=== PATIENT | female | born 2000 | race African-American/Black ===

== ENCOUNTER 2021-01-24 17:52 | Observation (INO) ==
[2021-01-24] MEDS ORDERED: SODIUM CHLORIDE 0.9% 1000ML 2,000 ML IV ONE (18:15)
--- NOTE | 2021-01-24 18:20 | Emergency Department Note ---
Impression & Plan Acute appendicitis, Abdominal pain ED Provider Note NAME: IRMA RANGEL AGE: 20 SEX: F : 2000 ARRIVES VIA: Ambulance INFORMANT: Patient ED PROVIDER(S): Mich Saini DO CHIEF COMPLAINT: abdominal pain HPI: Patient is a 20-year-old female who presents ER for right lower quadrant abdominal pain which has been present since this past Thursday. Last menstrual period was about 2 weeks ago. Pain is worse with movement, twisting, turning, and bending. She describes as a crampy pain which occurred while she was driving to work. She denies any diarrhea. Normal bowel movement was yesterday. She denies any vaginal bleeding and vaginal discharge. She has not been sexually active for the past 3 months. No previous STDs. Denies any upper respiratory symptoms. No other exacerbating or remitting factors. She had a CT with just IV contrast performed in outside hospital and an ultrasound which they were uncertain whether this was of appendicitis, hydrosalpinx, tubo-ovarian abscess, ovarian cyst or ovarian torsion. ROS: See above HPI for pertinent positives & negatives. A total of 10 systems reviewed and were otherwise negative. PAST MEDICAL HISTORY:See Below PAST SURGICAL HISTORY:See Below FAMILY HISTORY:See Below SOCIAL HISTORY:See Below HOME MEDICATIONS:See Below ALLERGIES:See Below VITALS:See Below PHYSICAL EXAMINATION: GENERAL: Sitting up in bed, alert, well appearing, well nourished, no distress, non-toxic EYE EXAM: normal conjunctiva. PERRL and EOM's grossly intact. OROPHARYNX: no exudate, no erythema, lips, buccal mucosa, and tongue normal and mucous membranes are moist NECK: supple, no nuchal rigidity, no adenopathy, non-tender LUNGS: Clear to auscultation. Normal chest wall mechanics HEART: no murmurs, S1 normal and S2 normal ABDOMEN: abdomen soft, TTP in RLQ, normo-active bowel sounds, no masses, no rebound or guarding. UPPER EXTREMITIES: upper extremities are grossly normal. LOWER EXTREMITIES: No pitting edema. NEURO EXAM: Normal sensorium, cranial nerves II-XII grossly intact, normal speech, no gross weakness of arms, no gross weakness of legs. MEDICAL DECISION MAKING: Patient is a 20-year-old female who presents ER referred in for another hospital as they performed a CT and ultrasound and when unable to obtain good images. They did not give her oral contrast and she is only 44 kg which made it nearly impossible to evaluate. IV was established blood was obtained. Labs show leukocytosis of 20,000. Mild anemia at 11. BMP with LFTs bilirubin and lipase was unremarkable. UA was clean. She had a test done at the outside facility which was negative. Covid was negative. She declined performing transvaginal exam. She had to be encouraged on multiple occasions to continue to drink and she eventually did. CT shows appendicitis. She was given IV fluids Zofran morphine and Zosyn. She was updated and discussed with general surgery and taken to the OR. Observation Status: Indication: Abdominal pain Patient with no pertinent family history, was seen first at 1820 hrs and was necessary in order to determine medical stabilityand avoid unnecessary admission. Upon reevaluation, 6 hours of observation revealed that the patient should be taken to the OR for acute appendicitis. Disposition date and time 0011 on 01/25/2021 Triage Nursing notes reviewed. Limited review of prior medical records performed Vital Signs: reviewed and remarkable for tachy Differential diagnosis: Differential diagnoses includes but is not limited to gastritis, peptic ulcer disease, GERD, gallbladder disease, pancreatitis, small bowel obstruction, acute coronary syndrome, pericarditis, ischemic bowel, irritable bowel disease, irritable bowel syndrome, appendicitis, diverticulitis, malignancy, hernia, urinary tract infection, torsion, [/ectopic (if female)], perforation, trauma, infectious. ER treatment provided: See below Diagnostics interpreted by me: Cardiac Monitoring: An order was placed for continuous cardiac monitoring. The monitor shows a rate of 95 with sinus rhythm. Laboratory studies: As stated above and show below. Imaging studies: CT abdomen pelvis shows appendicitis Ultrasound pelvis was then unable to determine fluid-filled contents in the lower pelvis Consultation(s): Discussed with Dr. Delgadillo and patient was taken to the OR Procedures: none Critical Care: None Past Med/Surg History Social History Smoking Status: Never smoker Feels Safe at Home: Yes Allergies Allergies Allergy/AdvReac Type Severity Reaction Status Date / Time No Known Allergies Allergy Unverified 01/24/21 18:37 Home Meds Home Medications Medication Instructions Recorded Confirmed acetaminophen 500 mg tablet 1,000 mg PO QID PRN 01/20/21 01/24/21 valacyclovir 500 mg tablet 500 mg PO DAILY PRN 01/20/21 01/24/21 norethindrone 1 mg-ethinyl 1 tab PO DAILY 01/24/21 01/24/21 estradiol 20 mcg (21)-iron 75 mg (7) tablet (Aurovela Fe 1-20 (28)) Results & Data (ED) Vital Signs Vital Signs - 24 hr 01/24/21 17:59 01/24/21 18:06 01/24/21 18:15 Temperature 37.0 C Temperature Source Oral Pulse Rate Pulse Rate [Left] 100 H Pulse Rhythm [Left] Regular Pulse Strength [Left] Normal Respiratory Rate 18 Respiratory Effort / Characteristics Non-Labored Respiratory Depth Normal Respiratory Pattern Regular Blood Pressure Blood Pressure [Left Arm] 112/61 Blood Pressure Mean Blood Pressure Mean [Left Arm] 78 Blood Pressure Position [Left Arm] Lying Pulse Oximetry 99 99 Oxygen Delivery Method Room Air Room Air Sepsis Recent Fever Within 48 Hours No Sepsis New/Unexplained Change in Mental Status N/A Sepsis Action Taken by Nursing No Action Required 01/24/21 20:21 01/24/21 20:31 01/24/21 20:45 Temperature Temperature Source Pulse Rate 114 H 97 H Pulse Rate [Left] 99 H Pulse Rhythm [Left] Regular Pulse Strength [Left] Normal Respiratory Rate 20 24 20 Respiratory Effort / Characteristics Non-Labored Respiratory Depth Normal Respiratory Pattern Regular Blood Pressure 111/72 Blood Pressure [Left Arm] 105/66 Blood Pressure Mean 85 Blood Pressure Mean [Left Arm] 79 Blood Pressure Position [Left Arm] Sitting Pulse Oximetry 100 99 99 Oxygen Delivery Method Room Air Room Air Room Air Sepsis Recent Fever Within 48 Hours Sepsis New/Unexplained Change in Mental Status Sepsis Action Taken by Nursing 01/24/21 21:00 01/24/21 21:15 01/24/21 21:30 Temperature Temperature Source Pulse Rate 107 H 103 H 106 H Pulse Rate [Left] Pulse Rhythm [Left] Pulse Strength [Left] Respiratory Rate 22 22 25 H Respiratory Effort / Characteristics Respiratory Depth Respiratory Pattern Blood Pressure 118/89 Blood Pressure [Left Arm] Blood Pressure Mean 98 Blood Pressure Mean [Left Arm] Blood Pressure Position [Left Arm] Pulse Oximetry 99 99 99 Oxygen Delivery Method Room Air Room Air Room Air Sepsis Recent Fever Within 48 Hours Sepsis New/Unexplained Change in Mental Status Sepsis Action Taken by Nursing 01/24/21 21:45 01/24/21 22:00 01/24/21 23:16 Temperature 36.8 C Temperature Source Oral Pulse Rate 98 H 99 H Pulse Rate [Left] 110 H Pulse Rhythm [Left] Pulse Strength [Left] Respiratory Rate 22 24 20 Respiratory Effort / Characteristics Respiratory Depth Respiratory Pattern Blood Pressure 109/62 Blood Pressure [Left Arm] 107/56 L Blood Pressure Mean 77 Blood Pressure Mean [Left Arm] 73 Blood Pressure Position [Left Arm] Pulse Oximetry 99 99 100 Oxygen Delivery Method Room Air Room Air Room Air Sepsis Recent Fever Within 48 Hours Sepsis New/Unexplained Change in Mental Status Sepsis Action Taken by Nursing 01/24/21 23:51 Temperature Temperature Source Pulse Rate Pulse Rate [Left] 96 H Pulse Rhythm [Left] Pulse Strength [Left] Respiratory Rate 20 Respiratory Effort / Characteristics Respiratory Depth Respiratory Pattern Blood Pressure Blood Pressure [Left Arm] 102/59 L Blood Pressure Mean Blood Pressure Mean [Left Arm] 73 Blood Pressure Position [Left Arm] Pulse Oximetry 97 Oxygen Delivery Method Room Air Sepsis Recent Fever Within 48 Hours Sepsis New/Unexplained Change in Mental Status Sepsis Action Taken by Nursing Laboratory Data Result diagrams: 01/24/21 19:19 01/24/21 19:18 Lab Results 01/24/21 01/24/21 01/24/21 Range/Units 19:18 19:19 22:17 WBC 20.33 H (4.8-10.8) K/uL RBC 3.66 L (4.2-5.4) M/uL Hgb 11.7 L (12.0-16.0) g/dL Hct 35.2 L (37-47) % MCV 96.2 (80-100) fL MCH 32.0 (25-34) pg MCHC 33.2 (32-36) g/dL RDW Std Deviation 45.8 (36.4-46.3) fL RDW Coeff of Demarcus 12.9 (11.5-14.5) % Plt Count 234 (130-400) K/uL MPV 13.0 H (7.4-10.4) fL Immature Gran % (Auto) 0.4 % Neut % (Auto) 92.4 % Lymph % (Auto) 4.1 % [place] % (Auto) 3.0 % Eos % (Auto) 0.0 % Baso % (Auto) 0.1 % Neut # (Auto) 18.77 H (1.4-6.5) K/uL Lymph # (Auto) 0.84 L (1.2-3.4) K/uL [place] # (Auto) 0.62 H (0.11-0.59) K/uL Eos # (Auto) 0.00 (0-0.5) K/uL Baso # (Auto) 0.02 (0-0.2) K/uL Immature Gran # (Auto) 0.08 H (0.00-0.02) K/uL Sodium 139 (136-145) mmol/L Potassium 3.6 (3.5-5.1) mmol/L Chloride 107 (98-107) mmol/L Carbon Dioxide 23 (21-32) mmol/L Anion Gap 9.0 (3-11) BUN 7 (7-18) mg/dl Creatinine 0.81 (0.6-1.2) mg/dl Est Cr Clr Drug Dosing 77.7 ml/min Est GFR ( Amer) 120.3 ml/min Est GFR (Non-Af Amer) 103.8 ml/min BUN/Creatinine Ratio 8.0 L (10-20) Glucose 96 (70-99) mg/dl Calcium 9.1 (8.5-10.1) mg/dl Total Bilirubin 0.5 (0.2-1) mg/dl AST 6 L (15-37) U/L ALT 12 (12-78) U/L Alkaline Phosphatase 44 L (45-117) U/L Total Protein 6.9 (6.4-8.2) gm/dl Albumin 3.0 L (3.4-5.0) gm/dl Globulin 3.9 (2.5-4.0) gm/dl Albumin/Globulin Ratio 0.8 L (0.9-2) Lipase 159 (73-393) U/L Urine Color Urine Appearance (Clear) Urine pH (4.5-7.5) Ur Specific [place] (1.000-1.030) Urine Protein (Negative) Urine Glucose (UA) (Negative) Urine Ketones (Negative) Urine Blood (Negative) Urine Nitrite (Negative) Urine Bilirubin (Negative) Urine Urobilinogen (Negative) Ur Leukocyte Esterase (Negative) COVID-19 Eval Order Cov[facility] at [facility] SARS-CoV-2 (PCR) (Negative) 01/24/21 01/24/21 Range/Units 22:17 22:41 WBC (4.8-10.8) K/uL RBC (4.2-5.4) M/uL Hgb (12.0-16.0) g/dL Hct (37-47) % MCV (80-100) fL MCH (25-34) pg MCHC (32-36) g/dL RDW Std Deviation (36.4-46.3) fL RDW Coeff of Demarcus (11.5-14.5) % Plt Count (130-400) K/uL MPV (7.4-10.4) fL Immature Gran % (Auto) % Neut % (Auto) % Lymph % (Auto) % [place] % (Auto) % Eos % (Auto) % Baso % (Auto) % Neut # (Auto) (1.4-6.5) K/uL Lymph # (Auto) (1.2-3.4) K/uL [place] # (Auto) (0.11-0.59) K/uL Eos # (Auto) (0-0.5) K/uL Baso # (Auto) (0-0.2) K/uL Immature Gran # (Auto) (0.00-0.02) K/uL Sodium (136-145) mmol/L Potassium (3.5-5.1) mmol/L Chloride (98-107) mmol/L Carbon Dioxide (21-32) mmol/L Anion Gap (3-11) BUN (7-18) mg/dl Creatinine (0.6-1.2) mg/dl Est Cr Clr Drug Dosing ml/min Est GFR ( Amer) ml/min Est GFR (Non-Af Amer) ml/min BUN/Creatinine Ratio (10-20) Glucose (70-99) mg/dl Calcium (8.5-10.1) mg/dl Total Bilirubin (0.2-1) mg/dl AST (15-37) U/L ALT (12-78) U/L Alkaline Phosphatase (45-117) U/L Total Protein (6.4-8.2) gm/dl Albumin (3.4-5.0) gm/dl Globulin (2.5-4.0) gm/dl Albumin/Globulin Ratio (0.9-2) Lipase (73-393) U/L Urine Color Yellow Urine Appearance Clear (Clear) Urine pH 6.5 (4.5-7.5) Ur Specific [place] 1.005 (1.000-1.030) Urine Protein Negative (Negative) Urine Glucose (UA) Negative (Negative) Urine Ketones Negative (Negative) Urine Blood Negative (Negative) Urine Nitrite Negative (Negative) Urine Bilirubin Negative (Negative) Urine Urobilinogen Negative (Negative) Ur Leukocyte Esterase Negative (Negative) COVID-19 Eval Order SARS-CoV-2 (PCR) NEGATIVE (Negative) Administered Medications Discontinued Medications Sodium Chloride (Nss 1000ml) 2,000 mls @ 999 mls/hr IV .Q2H1M ONE Stop: 01/24/21 20:15 Last Infusion: 01/24/21 21:55 Dose: 0 mls/hr Documented by: [id number] Admin: 01/24/21 18:33 Dose: 999 mls/hr Documented by: [id number] Piperacillin Sod/Tazobactam Sod (Zosyn) 4.5 gm in 120 mls @ 240 mls/hr IV NOW ONE Stop: 01/24/21 21:31 Last Infusion: 01/24/21 22:22 Dose: 0 mls/hr Documented by: [id number] Admin: 01/24/21 21:35 Dose: 240 mls/hr Documented by: [id number] Ioversol (Optiray 320 100ml) 84 ml IV ONCE ONE Stop: 01/24/21 22:40 Last Admin: 01/24/21 22:39 Dose: 84 ml Documented by: [id number] Morphine Sulfate (Morphine Sulfate 2 Mg/Ml Carp) 2 mg IV NOW STA Stop: 01/24/21 21:03 Last Admin: 01/24/21 21:35 Dose: 2 mg Documented by: [id number] Ondansetron HCl (Ondansetron Inj 2 Mg/Ml 2 Ml Vial) 4 mg IV NOW STA Stop: 01/24/21 21:03 Last Admin: 01/24/21 21:35 Dose: 4 mg Documented by: [id number] Imaging Data Radiologist's Impression: Pelvis Ultrasound 01/24/21 18:15 US pelvic complete HISTORY: 20 years-old Female rlq abd pain Acute right lower quadrant abdominal pain COMPARISON: None TECHNIQUE: Multiple real-time sonographic images of the deep pelvic structures were obtained transabdominally assessing grayscale appearance, color and spectral flow. The patient declined the transvaginal component of the study. FINDINGS: Anteflexed uterus measures 6.8 x 3.5 x 5.2 cm. Endometrium measures 9 mm in thickness. The left ovary is obscured by bowel gas. Mildly complex free pelvic fluid is noted within the abdominal left lower quadrant. The right ovary is not definitively seen. Collections of complex debris/fluid are noted within the right adnexa, largest of which measures 5.4 x 4.9 x 4.8 cm. Indeterminate linear structure in the right adnexum measures 5.6 cm with with echogenic wall thickening. IMPRESSION: 1. Limited study secondary to patient refusing the transvaginal component of the exam. 2. Nonvisualization of the ovaries. 3. Mildly complex free pelvic fluid is noted with complex cystic lesions versus collections of the right adnexum measuring up to 5.4 cm. Additionally, there is an indeterminate tubular structure of the right adnexum which demonstrates wall thickening. Differential considerations would include an inflamed fallopian tube, bowel loop or appendix with possible pelvic abscesses. Correlation with the already ordered CT abdomen and pelvis study recommended. ACT 112: Negative or not required by law. The above report was generated using voice recognition software. It may contain grammatical, syntax or spelling errors. Electronically signed by: Louis Butts M.D. 01/24/2021 8:30 PM Discharge Plan Visit Data Chief Complaint: Abdominal Pain Stated Complaint: ABDOMINAL PAIN ED Provider: Mich Saini Discharge Problem: Acute appendicitis, Abdominal pain Forms Stand Alone Forms: [facility] Prescriptions Prescriptions: No Action valacyclovir 500 mg Tablet 500 mg PO DAILY PRN (Reason: Cold Sores) RF: 0 acetaminophen 500 mg Tablet 1,000 mg PO QID PRN (Reason: Pain) RF: 0 norethindrone-e.estradiol-iron [Aurovela Fe 1-20 (28)] 1 mg-20 mcg (21)/75 mg (7) tablet 1 tab PO DAILY RF: 0 Referrals Referrals: PCP,NO [Physician] -
[2021-01-24 20:13] LABS: Basophils # (auto) 0.02 K/uL (0-0.2); Basophils % (auto) 0.1 %; Hematocrit (blood only) 35.2 % (37-47); Hemoglobin 11.7 g/dL (12.0-16.0); Immature Granulocytes # (auto) 0.08 K/uL (0.00-0.02); Immature Granulocytes % (auto) 0.4 %; Lymphocytes # (auto) 0.84 K/uL (1.2-3.4); Lymphocytes % (auto) 4.1 %; Mean Corpuscular Hgb Conc 33.2 g/dL (32-36); Mean Corpuscular Volume 96.2 fL (80-100); Monocytes # (auto) 0.62 K/uL (0.11-0.59); Neutrophils # (auto) 18.77 K/uL (1.4-6.5); Neutrophils % (auto) 92.4 %; Platelet Count 234 K/uL (130-400); RDW Coefficient of Variation 12.9 % (11.5-14.5); RDW Standard Deviation 45.8 fL (36.4-46.3); Red Blood Count 3.66 M/uL (4.2-5.4); White Blood Count 20.33 K/uL (4.8-10.8)
--- NOTE | 2021-01-24 20:32 | Ultrasound Report ---
US pelvic complete HISTORY: 20 years-old Female rlq abd pain Acute right lower quadrant abdominal pain COMPARISON: None TECHNIQUE: Multiple real-time sonographic images of the deep pelvic structures were obtained transabd ominally assessing grayscale appearance, color and spectral flow. The patient declined the transvagin al component of the study. FINDINGS: Anteflexed uterus measures 6.8 x 3.5 x 5.2 cm. Endometrium measures 9 mm in thickness. The left ovary is obscured by bowel gas. Mildly complex free pelvic fluid is noted within the abdominal left lower quadrant. The right ovary is not definitively seen. Collections of complex debris/fluid are noted wit hin the right adnexa, largest of which measures 5.4 x 4.9 x 4.8 cm. Indeterminate linear structure in the right adnexum measures 5.6 cm with with echogenic wall thickening. IMPRESSION: 1. Limited study secondary to patient refusing the transvaginal component of the exam. 2. Nonvisualization of the ovaries. 3. Mildly complex free pelvic fluid is noted with complex cystic lesions versus collections of the ri ght adnexum measuring up to 5.4 cm. Additionally, there is an indeterminate tubular structure of the right adnexum which demonstrates wall thickening. Differential considerations would include an inflam ed fallopian tube, bowel loop or appendix with possible pelvic abscesses. Correlation with the alread y ordered CT abdomen and pelvis study recommended. ACT 112: Negative or not required by law. The above report was generated using voice recognition software. It may contain grammatical, syntax o r spelling errors. Electronically signed by: Louis Butts M.D. 01/24/2021 8:30 PM
[2021-01-24 20:34] LABS: Calcium 9.1 mg/dl (8.5-10.1); Creatinine Clr Calc Pharmacy 77.7 ml/min; Est GFR (African American) 120.3 ml/min; Est GFR (Non-African American) 103.8 ml/min; Potassium 3.6 mmol/L (3.5-5.1)
[2021-01-24 20:37] LABS: Albumin Globulin Ratio 0.8 (0.9-2); Bilirubin,Total 0.5 mg/dl (0.2-1); Globulin 3.9 gm/dl (2.5-4.0); Total Protein 6.9 gm/dl (6.4-8.2)
[2021-01-24] MEDS ORDERED: PIPERACILL/TAZOBAC CONSULT ACTIVE PRN (21:02)
[2021-01-24] MEDS ORDERED: PIPERACILLIN/TAZOBACTAM 4.5 GM/120 ML BAG IV ONE (21:02)
[2021-01-24] MEDS ORDERED: MoRPHine SULFATE 2 MG/ML CARP IV STA (21:02)
[2021-01-24] MEDS ORDERED: ONDANSETRON INJ 2 MG/ML 2 ML VIAL IV STA (21:02)
[2021-01-24] MEDS ORDERED: OPTIRAY 320 100ml IV ONE (22:39)
[2021-01-24 23:13] LABS: Appearance Urine Clear (Clear); Bilirubin Urine Negative (Negative); Blood Urine Negative (Negative); Color Urine Yellow; Glucose Urine UA Negative (Negative); Ketones Urine Negative (Negative); Leukocyte Esterase Urine Negative (Negative); Nitrite Urine Negative (Negative); Protein Urine Negative (Negative); Specific Gravity Urine 1.005 (1.000-1.030); Urobilinogen Urine Negative (Negative); pH Urine 6.5 (4.5-7.5)
--- NOTE | 2021-01-25 00:27 | History & Physical Bridge Note ---
Date of Service January 25, 2021 History & Physical Bridge Note I have examined the patient, reviewed the History & Physical and in the interval since the performance of the History & Physical I have noted the following changes of clinical significance: no changes noted
--- NOTE | 2021-01-25 00:27 | Surgery Consultation ---
Date of Consultation January 25, 2021 Assessment & Plan (1) Acute appendicitis: pt is a 20 year-old female who presents to Er with one day history RLQ pain, CT scan diagnosis- acute appendicitis, IMP: acute appendicitis, plan, I recommend to do laparoscopic appendectomy, possible open, D/W benefits, risks and alternatives of the surgery, the risks- infection, bleeding, abscess, injury other organs, bowel obstruction, incisional hernia, pt understood, she agrees with the surgery, she signed informed consent, I answered all questions, pre-op iv antibiotic, History of Present Illness Reason for Consultation: acute appendicitis Attending Physician: Mich Perales History of Present Illness CHIEF COMPLAINT: abdominal pain HPI: Patient is a 20-year-old female who presents ER for right lower quadrant abdominal pain which has been present since this past Thursday. Last menstrual period was about 2 weeks ago. Pain is worse with movement, twisting, turning, and bending. She describes as a crampy pain which occurred while she was driving to work. She denies any diarrhea. Normal bowel movement was yesterday. She denies any vaginal bleeding and vaginal discharge. She has not been sexually active for the past 3 months. No previous STDs. Denies any upper respiratory symptoms. No other exacerbating or remitting factors. She had a CT with just IV contrast performed in outside hospital and an ultrasound which they were uncertain whether this was of appendicitis, hydrosalpinx, tubo-ovarian abscess, ovarian cyst or ovarian torsion. I ( Blane Delgadillo MD ) got a call for consult appendicitis, I reviewed pt's H/P, labs, CT scan and U/S study with pt, ROS: See above HPI for pertinent positives & negatives. A total of 10 systems reviewed and were otherwise negative. PAST MEDICAL HISTORY:See Below PAST SURGICAL HISTORY:See Below FAMILY HISTORY:See Below SOCIAL HISTORY:See Below HOME MEDICATIONS:See Below ALLERGIES:See Below Indication: Abdominal pain Patient with no pertinent family history, was seen first at 1820 hrs and was necessary in order to determine medical stabilityand avoid unnecessary admission. Upon reevaluation, 6 hours of observation revealed that the patient should be taken to the OR for acute appendicitis. Disposition date and time 0011 on 01/25/2021 Triage Nursing notes reviewed. Limited review of prior medical records performed Vital Signs: reviewed and remarkable for tachy Differential diagnosis: Differential diagnoses includes but is not limited to gastritis, peptic ulcer disease, GERD, gallbladder disease, pancreatitis, small bowel obstruction, acute coronary syndrome, pericarditis, ischemic bowel, irritable bowel disease, irritable bowel syndrome, appendicitis, diverticulitis, malignancy, hernia, urinary tract infection, torsion, [/ectopic (if female)], perforation, trauma, infectious. ER treatment provided: See below Diagnostics interpreted by me: Cardiac Monitoring: An order was placed for continuous cardiac monitoring. The monitor shows a rate of 95 with sinus rhythm. Laboratory studies: As stated above and show below. Imaging studies: CT abdomen pelvis shows appendicitis Ultrasound pelvis was then unable to determine fluid-filled contents in the lower pelvis Consultation(s): Discussed with Dr. Delgadillo and patient was taken to the OR Procedures: none Critical Care: None Past Med/Surg History Social History Smoking Status: Never smoker Feels Safe at Home: Yes Allergies Allergies Allergy/AdvReac Type Severity Reaction Status Date / Time No Known Allergies Allergy Unverified 01/24/21 18:37 Home Meds Home Medications Medication Instructions Recorded Confirmed acetaminophen 500 mg tablet 1,000 mg PO QID PRN 01/20/21 01/24/21 valacyclovir 500 mg tablet 500 mg PO DAILY PRN 01/20/21 01/24/21 norethindrone 1 mg-ethinyl 1 tab PO DAILY 01/24/21 01/24/21 estradiol 20 mcg (21)-iron 75 mg (7) tablet (Aurovela Fe 1-20 (28)) Results & Data (ED) Vital Signs Vital Signs - 24 hr 01/24/21 17:59 01/24/21 18:06 01/24/21 18:15 Temperature 37.0 C Temperature Source Oral Pulse Rate Pulse Rate [Left] 100 H Pulse Rhythm [Left] Regular Pulse Strength [Left] Normal Respiratory Rate 18 Respiratory Effort / Characteristics Non-Labored Respiratory Depth Normal Respiratory Pattern Regular Blood Pressure Blood Pressure [Left Arm] 112/61 Blood Pressure Mean Blood Pressure Mean [Left Arm] 78 Blood Pressure Position [Left Arm] Lying Pulse Oximetry 99 99 Oxygen Delivery Method Room Air Room Air Sepsis Recent Fever Within 48 Hours No Sepsis New/Unexplained Change in Mental Status N/A Sepsis Action Taken by Nursing No Action Required 01/24/21 20:21 01/24/21 20:31 01/24/21 20:45 Temperature Temperature Source Pulse Rate 114 H 97 H Pulse Rate [Left] 99 H Pulse Rhythm [Left] RegularB Pulse Strength [Left] Normal Respiratory Rate 20 24 20 Respiratory Effort / Characteristics Non-Labored Respiratory Depth Normal Respiratory Pattern Regular Blood Pressure 111/72 Blood Pressure [Left Arm] 105/66 Blood Pressure Mean 85 Blood Pressure Mean [Left Arm] 79 Blood Pressure Position [Left Arm] Sitting Pulse Oximetry 100 99 99 Oxygen Delivery Method Room Air Room Air Room Air Sepsis Recent Fever Within 48 Hours Sepsis New/Unexplained Change in Mental Status Sepsis Action Taken by Nursing 01/24/21 21:00 01/24/21 21:15 01/24/21 21:30 Temperature Temperature Source Pulse Rate 107 H 103 H 106 H Pulse Rate [Left] Pulse Rhythm [Left] Pulse Strength [Left] Respiratory Rate 22 22 25 H Respiratory Effort / Characteristics Respiratory Depth Respiratory Pattern Blood Pressure 118/89 Blood Pressure [Left Arm] Blood Pressure Mean 98 Blood Pressure Mean [Left Arm] Blood Pressure Position [Left Arm] Pulse Oximetry 99 99 99 Oxygen Delivery Method Room Air Room Air Room Air Sepsis Recent Fever Within 48 Hours Sepsis New/Unexplained Change in Mental Status Sepsis Action Taken by Nursing 01/24/21 21:45 01/24/21 22:00 01/24/21 23:16 Temperature 36.8 C Temperature Source Oral Pulse Rate 98 H 99 H Pulse Rate [Left] 110 H Pulse Rhythm [Left] Pulse Strength [Left] Respiratory Rate 22 24 20 Respiratory Effort / Characteristics Respiratory Depth Respiratory Pattern Blood Pressure 109/62 Blood Pressure [Left Arm] 107/56 L Blood Pressure Mean 77 Blood Pressure Mean [Left Arm] 73 Blood Pressure Position [Left Arm] Pulse Oximetry 99 99 100 Oxygen Delivery MethodB Room Air Room Air Room Air Sepsis Recent Fever Within 48 Hours Sepsis New/Unexplained Change in Mental Status Sepsis Action Taken by Nursing 01/24/21 23:51 Temperature Temperature Source Pulse Rate Pulse Rate [Left] 96 H Pulse Rhythm [Left] Pulse Strength [Left] Respiratory Rate 20 Respiratory Effort / Characteristics Respiratory Depth Respiratory Pattern Blood Pressure Blood Pressure [Left Arm] 102/59 L Blood Pressure Mean Blood Pressure Mean [Left Arm] 73 Blood Pressure Position [Left Arm] Pulse Oximetry 97 Oxygen Delivery Method Room Air Sepsis Recent Fever Within 48 Hours Sepsis New/Unexplained Change in Mental Status Sepsis Action Taken by Nursing Laboratory Data Result diagrams: 01/24/21 19:19 01/24/21 19:18 Lab Results 01/24/21 01/24/21 01/24/21 Range/Units 19:18 19:19 22:17 WBC 20.33 H (4.8-10.8) K/uL RBC 3.66 L (4.2-5.4) M/uL Hgb 11.7 L (12.0-16.0) g/dL Hct 35.2 L (37-47) % MCV 96.2 (80-100) fL MCH 32.0 (25-34) pg MCHC 33.2 (32-36) g/dL RDW Std Deviation 45.8 (36.4-46.3) fL RDW Coeff of Demarcus 12.9 (11.5-14.5) % Plt Count 234 (130-400) K/uL MPV 13.0 H (7.4-10.4) fL Immature Gran % (Auto) 0.4 % Neut % (Auto) 92.4 % Lymph % (Auto) 4.1 % [place] % (Auto) 3.0 % Eos % (Auto)B 0.0 % Baso % (Auto) 0.1 % Neut # (Auto) 18.77 H (1.4-6.5) K/uL Lymph # (Auto) 0.84 L (1.2-3.4) K/uL [place] # (Auto) 0.62 H (0.11-0.59) K/uL Eos # (Auto) 0.00 (0-0.5) K/uL Baso # (Auto) 0.02 (0-0.2) K/uL Immature Gran # (Auto) 0.08 H (0.00-0.02) K/uL Sodium 139 (136-145) mmol/L Potassium 3.6 (3.5-5.1) mmol/L Chloride 107 (98-107) mmol/L Carbon Dioxide 23 (21-32) mmol/L Anion Gap 9.0 (3-11) BUN 7 (7-18) mg/dl Creatinine 0.81 (0.6-1.2) mg/dl Est Cr Clr Drug Dosing 77.7 ml/min Est GFR ( Amer) 120.3 ml/min Est GFR (Non-Af Amer) 103.8 ml/min BUN/Creatinine Ratio 8.0 L (10-20) Glucose 96B (70-99) mg/dl Calcium 9.1 (8.5-10.1) mg/dl Total Bilirubin 0.5 (0.2-1) mg/dl AST 6 L (15-37) U/L ALT 12 (12-78) U/L Alkaline Phosphatase 44 L (45-117) U/L Total Protein 6.9 (6.4-8.2) gm/dl Albumin 3.0 L (3.4-5.0) gm/dl Globulin 3.9 (2.5-4.0) gm/dl Albumin/Globulin Ratio 0.8 L (0.9-2) Lipase 159 (73-393) U/L Urine Color Urine Appearance (Clear) Urine pH (4.5-7.5) Ur Specific [place] (1.000-1.030) Urine Protein (Negative) Urine Glucose (UA) (Negative) Urine Ketones (Negative) Urine Blood (Negative) Urine Nitrite (Negative) Urine Bilirubin (Negative) Urine Urobilinogen (Negative) Ur Leukocyte Esterase (Negative) COVID-19 Eval Order Covid19 at [facility] SARS-CoV-2 (PCR) (Negative) 01/24/21 01/24/21 Range/Units 22:17 22:41 WBC (4.8-10.8) K/uL RBC (4.2-5.4) M/uL Hgb (12.0-16.0) g/dL Hct (37-47) % MCV (80-100) fL MCH (25-34) pg MCHC (32-36) g/dL RDW Std Deviation (36.4-46.3) fL RDW Coeff of Demarcus (11.5-14.5) % Plt Count (130-400) K/uL MPV (7.4-10.4) fL Immature Gran % (Auto) % Neut % (Auto) % Lymph % (Auto) % [place] % (Auto) % Eos % (Auto) % Baso % (Auto) % Neut # (Auto) (1.4-6.5) K/uL Lymph # (Auto) (1.2-3.4) K/uL [place] # (Auto) (0.11-0.59) K/uL Eos # (Auto) (0-0.5) K/uL Baso # (Auto) (0-0.2) K/uL Immature Gran # (Auto) (0.00-0.02) K/uL Sodium (136-145) mmol/L Potassium (3.5-5.1) mmol/L Chloride (98-107) mmol/L Carbon Dioxide (21-32) mmol/L Anion Gap (3-11) BUN (7-18) mg/dl Creatinine (0.6-1.2) mg/dl Est Cr Clr Drug Dosing ml/min Est GFR ( Amer) ml/min Est GFR (Non-Af Amer) ml/min BUN/Creatinine Ratio (10-20) Glucose (70-99) mg/dl Calcium (8.5-10.1) mg/dl Total Bilirubin (0.2-1) mg/dl AST (15-37) U/L ALT (12-78) U/L Alkaline Phosphatase (45-117) U/L Total Protein (6.4-8.2) gm/dl Albumin (3.4-5.0) gm/dl Globulin (2.5-4.0) gm/dl Albumin/Globulin Ratio (0.9-2) Lipase (73-393) U/L Urine Color Yellow Urine Appearance Clear (Clear) Urine pH 6.5 (4.5-7.5) Ur Specific [place] 1.005 (1.000-1.030) Urine Protein Negative (Negative) Urine Glucose (UA) Negative (Negative) Urine Ketones Negative (Negative) Urine Blood Negative (Negative) Urine Nitrite Negative (Negative) Urine Bilirubin Negative (Negative) Urine Urobilinogen Negative (Negative) Ur Leukocyte Esterase Negative (Negative) COVID-19 Eval Order SARS-CoV-2 (PCR) NEGATIVE (Negative) Administered Medications Discontinued Medications Sodium Chloride (Nss 1000ml) 2,000 mls @ 999 mls/hr IV .Q2H1M ONE Stop: 01/24/21 20:15 Last Infusion: 01/24/21 21:55 Dose: 0 mls/hr Documented by: [id number] Admin: 01/24/21 18:33 Dose: 999 mls/hr Documented by: [id number] Piperacillin Sod/Tazobactam Sod (Zosyn) 4.5 gm in 120 mls @ 240 mls/hr IV NOW ONE Stop: 01/24/21 21:31 Last Infusion: 01/24/21 22:22 Dose: 0 mls/hr Documented by: [id number] Admin: 01/24/21 21:35 Dose: 240 mls/hr Documented by: [id number] Ioversol (Optiray 320 100ml) 84 ml IV ONCE ONE Stop: 01/24/21 22:40 Last Admin: 01/24/21 22:39 Dose: 84 ml Documented by: [id number] Morphine Sulfate (Morphine Sulfate 2 Mg/Ml Carp) 2 mg IV NOW STA Stop: 01/24/21 21:03 Last Admin: 01/24/21 21:35 Dose: 2 mg Documented by: [id number] Ondansetron HCl (Ondansetron Inj 2 Mg/Ml 2 Ml Vial) 4 mg IV NOW STA Stop: 01/24/21 21:03 Last Admin: 01/24/21 21:35 Dose: 4 mg Documented by: [id number] Imaging Data Radiologist's Impression: Pelvis Ultrasound 01/24/21 18:15 US pelvic complete HISTORY: 20 years-old Female rlq abd pain Acute right lower quadrant abdominal pain COMPARISON: None TECHNIQUE: Multiple real-time sonographic images of the deep pelvic structures were obtained transabdominally assessing grayscale appearance, color and spectral flow. The patient declined the transvaginal component of the study. FINDINGS: Anteflexed uterus measures 6.8 x 3.5 x 5.2 cm. Endometrium measures 9 mm in thickness. The left ovary is obscured by bowel gas. Mildly complex free pelvic fluid is noted within the abdominal left lower quadrant. The right ovary is not definitively seen. Collections of complex debris/fluid are noted within the right adnexa, largest of which measures 5.4 x 4.9 x 4.8 cm. Indeterminate linear structure in the right adnexum measures 5.6 cm with with echogenic wall thickening. IMPRESSION: 1. Limited study secondary to patient refusing the transvaginal component of the exam. 2. Nonvisualization of the ovaries. 3. Mildly complex free pelvic fluid is noted with complex cystic lesions versus collections of the right adnexum measuring up to 5.4 cm. Additionally, there is an indeterminate tubular structure of the right adnexum which demonstrates wall thickening. Differential considerations would include an inflamed fallopian tube, bowel loop or appendix with possible pelvic abscesses. Correlation with the already ordered CT abdomen and pelvis study recommended Allergies Allergy/AdvReac Type Severity Reaction Status Date / Time No Known Allergies Allergy Unverified 01/24/21 18:37 Home Medications Medication Instructions Recorded Confirmed Type acetaminophen 500 mg tablet 1,000 mg PO QID PRN 01/20/21 01/24/21 History valacyclovir 500 mg tablet 500 mg PO DAILY PRN 01/20/21 01/24/21 History norethindrone 1 mg-ethinyl 1 tab PO DAILY 01/24/21 01/24/21 History estradiol 20 mcg (21)-iron 75 mg (7) tablet (Aurovela Fe 1-20 (28)) Patient History Social History Smoking Status: Never smoker Feels Safe at Home: Yes Physical Exam Constitutional: WD/WN, vitals as above Eyes: PERRL, conjunctivae normal, anicteric sclerae Neck: trachea midline, no thyromegaly Respiratory: normal respiratory effort, lungs clear to auscultation Cardiovascular: RRR, no murmur, no edema Gastrointestinal (Abdomen): soft, tenderness at RLQ, no rebound pain, no distend, BS + Musculoskeletal: no cyanosis or clubbing, extremities motor strength 5/5 Neurologic: patellar DTR's 2+ bilat, sensation intact Psychiatric: A+Ox3, euthymic affect Results & Data ([facility]) Vital Signs (Past 12 Hours) Vital Signs Temp Pulse Pulse Resp BP BP Pulse Ox 01/24/21 23:51 96 H 20 102/59 L 97 01/24/21 23:16 110 H 20 107/56 L 100 01/24/21 22:00 36.8 C 99 H 24 109/62 99 01/24/21 21:45 98 H 22 99 01/24/21 21:30 106 H 25 H 99 01/24/21 21:15 103 H 22 99 01/24/21 21:00 107 H 22 118/89 99 01/24/21 20:45 97 H 20 99 01/24/21 20:31 114 H 24 111/72 99 01/24/21 20:21 99 H 20 105/66 100 01/24/21 18:15 99 11/04/21 18:06 37.0 C 100 H 18 112/61 99 (1) Acute appendicitis Acute appendicitis type: unspecified acute appendicitis type Qualified Code(s): K35.80 - Unspecified acute appendicitis
[2021-01-25] MEDS ORDERED: fentaNYL citrate 100 MCG/2 ML VIAL ONE (00:42)
[2021-01-25 00:47] LABS: Pregnancy Test, Urine Negative (Negative)
[2021-01-25] MEDS ORDERED: BACITRACIN OINT 15 GM TUBE ONE (00:48)
[2021-01-25] MEDS ORDERED: BUPIVACAINE 0.25% 30 ML VIAL ONE (00:48)
[2021-01-25] MEDS ORDERED: LIDOCAINE 1% LOCAL 20 ML VIAL ONE (00:48)
[2021-01-25] MEDS ORDERED: fentaNYL citrate 100 MCG/2 ML VIAL IV PRN (00:52)
[2021-01-25] MEDS ORDERED: ONDANSETRON INJ 2 MG/ML 2 ML VIAL IV PRN ×2 (00:52→02:38)
[2021-01-25] MEDS ORDERED: ATROPINE SULFATE 0.1 MG/ML 10ML SYR IV PRN (00:52)
[2021-01-25] MEDS ORDERED: PROMETHAZINE HCL 6.25 MG in SODIUM CHLORIDE 0.9% 50 ML IV PRN (00:52)
[2021-01-25] MEDS ORDERED: ePHEDrine sulfate 50 MG/ML AMP IV PRN (00:52)
--- NOTE | 2021-01-25 01:01 | Anesthesiology Consultation ---
Date of Service January 25, 2021 Assessment & Plan Chart Review Chart Review: Acceptable Risk for Surgery and Patient NOT seen in Pre Admission Testing Consults Requested none ASA [id number] Proposed Anesthesia Anesthesia Type: General Risk / Benefits Reviewed With: PT / POA / Parent / Guardian, Accepts Plan and Informed Consent Obtained History Surgery Operation Date: 01/25/21 01:00 Proposed Procedures p Laparoscopic Appendectomy - Blane Delgadillo MD Height/Weight Height: 5 ft 5 in Weight: 44.8 kg Allergies Allergy/AdvReac Type Severity Reaction Status Date / Time No Known Allergies Allergy Unverified 01/24/21 18:37 Medications Home Medications Medication Instructions Recorded Confirmed Last Taken acetaminophen 500 mg tablet 1,000 mg PO QID PRN 01/20/21 01/24/21 01/20/21 valacyclovir 500 mg tablet 500 mg PO DAILY PRN 01/20/21 01/24/21 01/18/21 norethindrone 1 mg-ethinyl 1 tab PO DAILY 01/24/21 01/24/21 Unknown estradiol 20 mcg (21)-iron 75 mg (7) tablet (Aurovela Fe 1-20 (28)) NPO Date Last Intake of Fluids: 01/24/21 Last Intake of Fluids Comment: 01/23/21 Date Last Intake of Solids: 01/22/21 Exercise / Class Metabolic Activity II 4-5 Yardwork/Stairs/Walk up hill Past Anesthesia History No Hx of Anesthesia Complications and No Family Hx of Anesthesia Complications History of PONV No Hx of PONV and No Hx of Motion Sickness Social History Smoking Status: Never smoker Physical Exam Vital Signs Last Vital Signs Temp 36.8 C 01/24/21 22:00 Pulse 102 H 01/25/21 00:43 Resp 18 01/25/21 00:43 BP 98/56 L 01/25/21 00:43 Pulse Ox 99 01/25/21 00:43 ENMT Mouth: no dentition abnormality Thyromental Distance: > or= 3.5 Finger Breadths Mallampati Class: II Neck normal visual inspection Respiratory normal respiratory effort Auscultation: lungs clear to auscultation bilaterally Cardiovascular Rate/Rhythm: regular rate and regular rhythm Psychiatric Orientation: alert Testing Laboratory Results 01/24/21 19:19 01/24/21 19:18 Urine Color Yellow 01/24/21 22:41 Urine Appearance Clear (Clear) 01/24/21 22:41 Urine pH 6.5 (4.5-7.5) 01/24/21 22:41 Ur Specific [place] 1.005 (1.000-1.030) 01/24/21 22:41 Urine Protein Negative (Negative) 01/24/21 22:41 Urine Glucose (UA) Negative (Negative) 01/24/21 22:41 Urine Ketones Negative (Negative) 01/24/21 22:41 Urine Nitrite Negative (Negative) 01/24/21 22:41 Ur Leukocyte Esterase Negative (Negative) 01/24/21 22:41 Urine Test Negative (Negative) 01/24/21 22:41 01/24/21 22:41 Urine Test Negative
[2021-01-25] MEDS ORDERED: MoRPHine SULFATE 2 MG/ML CARP ONE (01:41)
[2021-01-25] MEDS ORDERED: PROPOFOL IV EMULSION 10 MG/ML 20 ML VIAL IV ONE (02:21)
[2021-01-25] MEDS ORDERED: LIDOCAINE 2% 2 ML VIAL/AMP(20MG/ML) INFIL ONE (02:21)
[2021-01-25] MEDS ORDERED: ROCURONIUM BROMIDE 10 MG/ML 5 ML VIAL IV ONE (02:21)
[2021-01-25] MEDS ORDERED: ONDANSETRON INJ 2 MG/ML 2 ML VIAL ONE (02:21)
[2021-01-25] MEDS ORDERED: KETOROLAC 30 MG/ML VIAL ONE (02:21)
[2021-01-25] MEDS ORDERED: DEXAMETHASONE SOD INJ 4 MG/ML VIAL ONE (02:21)
[2021-01-25] MEDS ORDERED: SUCCINYLCHOLINE CHLORIDE 20 MG/ML 10 ML VIAL IV ONE (02:21)
--- NOTE | 2021-01-25 02:30 | Post Operative Brief Note ---
Immediate Post Op Note v1 Date of Surgery January 25, 2021 Pre & Post Diagnosis Operation Date: 01/25/21 01:00 Pre-Op Diagnosis: Acute appendicitis. Post-Op Diagnosis: Acute appendicitis. I identified the patient and participated in the time-out.: Yes Procedure Operation Date: 01/25/21 01:00 Actual Procedures p Laparoscopic Appendectomy - Blane Delgadillo MD Surgeon Blane Delgadillo MD [employer] certified surgical assistant Estimated Blood Loss 10 Findings Consistent with Post-Op Diagnosis significant inflammation on appendix, acute appendicitis, with pelvic fluid, Fluids 1000ml Specimens appendix Anesthesia Type General Complications none Disposition Accompanied Patient To Recovery: Yes
--- NOTE | 2021-01-25 02:45 | Anesthesiology Progress Note ---
Date of Service January 25, 2021 Anesthesia Post Procedure Vital Signs Vital Signs: Temp Pulse Pulse Resp BP BP Pulse Ox 01/25/21 00:43 102 H 18 98/56 L 99 01/24/21 23:51 96 H 20 102/59 L 97 01/24/21 23:16 110 H 20 107/56 L 100 01/24/21 22:00 36.8 C 99 H 24 109/62 99 01/24/21 21:45 98 H 22 99 01/24/21 21:30 106 H 25 H 99 01/24/21 21:15 103 H 22 99 01/24/21 21:00 107 H 22 118/89 99 01/24/21 20:45 97 H 20 99 01/24/21 20:31 114 H 24 111/72 99 01/24/21 20:21 99 H 20 105/66 100 01/24/21 18:15 99 01/24/21 18:06 37.0 C 100 H 18 112/61 99 Pain Intensity Abdomen: Pain Intensity: 3 Transfer of Care Handoff Completed per policy Notes Mental Status: alert / awake / arousable Patient Amnestic to Procedure: Yes Nausea / Vomiting: adequately controlled Pain: adequately controlled Airway Patency, RR, SpO2: stable & adequate BP & HR: stable & adequate Hydration State: stable & adequate Anesthetic Complications: no major complications apparent
--- NOTE | 2021-01-25 03:25 | Operative Report (OR) ---
DATE OF PROCEDURE: 01/25/2021. PREOPERATIVE DIAGNOSIS: Acute appendicitis. POSTOPERATIVE DIAGNOSIS: Acute appendicitis. OPERATION: Laparoscopic appendectomy. SURGEON: Blane Delgadillo MD ANESTHESIA: General. ESTIMATED BLOOD LOSS: About 10 mL. FINDINGS: Acute appendicitis, significant inflammation on the appendix and some pelvic free fluid. COMPLICATIONS: None. INDICATIONS FOR THE PROCEDURE: This is a 20-year-old female who presented to the ED with acute abdominal pain. The patient had a CT scan diagnosis of acute appendicitis. I recommended to do laparoscopic appendectomy, possible open. I did talk to the patient about the benefits, risks, alternate procedures. I indicated the risks may include, but not limited to, such as bleeding, infection, injury to other organs, abscess, incisional hernia, bowel obstruction, remaining fecalith. The patient understood. She signed informed consent and I answered all questions. DETAILS OF PROCEDURE: We brought in the patient to the OR, put the patient in the supine position on the OR table. The patient received SCDs on bilateral legs to prevent DVT. After we identified the patient and verified the procedure, we brought in the patient to the OR and also the patient received 3.375 grams Zosyn IV for prophylactic antibiotic. The patient received general anesthesia without difficulty. The abdomen was prepped and draped in routine sterile fashion. After timeout, I injected the local anesthesia by using 1% lidocaine mixed with 0.5% Marcaine just above umbilicus. Then I made a small incision just above umbilicus, opened fascia, opened peritoneum. Under direct vision, I put a Melanie trocar in, connected to CO2 to create pneumoperitoneum, flow rate at 6 liters per minute, pressure not more than 14 mmHg. Once we got a nice pneumoperitoneum, we put a camera in, looked around the abdomen. It showed normal finding on the small bowel and large bowel; however, the appendix was located in the posterior cecum area and at this moment we put another two 5 mm trocars on the left lower quadrant area. Then we were able to mobilize the cecum area and found the patient had significant inflammation and enlarged appendix on the posterior wall of the cecum. Also the patient had some free fluid around the pelvic area, we suctioned the free fluid. Then, we mobilized the appendix by using Harmonic to take down the appendiceal, rechecked, no active bleeding. Then I used a 45 mm Endo-FAVIOLA stapler for transection on the base of appendix, rechecked the staple line, intact. No leak, no active bleeding. Then, we removed the appendix through the catch bag. Then we reinserted the Melanie trocar in, connected to CO2 to create pneumoperitoneum. Again looked around the abdomen, no active bleeding, no leak from staple line. Then we removed all trocars under direct vision. No active bleeding from the trocar site. Pneumoperitoneum was released. Then I closed umbilical incision fascial layer by using 0 Vicryl [id number] x2, closed subcutaneous layer by using 2-0 Vicryl interruptedly, closed skin by using 4-0 Vicryl continuous running, closed another two 5 mm trocar sites skin only by using 4-0 Vicryl. Then, we put the dressing on. The patient tolerated the procedure well. All instrument, needle and sponge counts were correct x2 at the end of the case. The patient was transferred to Recovery Room in stable condition. The specimen was sent to pathology. After the procedure, I did talk to the patient about the OR finding and the procedure we did, the patient understood. Job ID: [id number] [facility]
[2021-01-25] MEDS ORDERED: valACYclovir HCL 500 MG TABLET PO PRN (03:39)
[2021-01-25] MEDS ORDERED: HYDROmorphone INJ 0.5 MG/0.5 ML SYR IV PRN (03:39)
[2021-01-25] MEDS ORDERED: PIPERACILL/TAZOBAC CONSULT ACTIVE PRN (03:39)
[2021-01-25] MEDS ORDERED: LACTATED RINGER'S 1,000 ML IV SCH (04:00)
[2021-01-25] MEDS: PIPERACILLIN/TAZOBACTAM 3.375 GM in DEXTROSE 5% 100 ML IV SCH ×3 (05:18→19:57)
--- NOTE | 2021-01-25 07:41 | CT Scan Report ---
CT abd pelvis oral and IV con CLINICAL HISTORY: rlq abd pain COMPARISON STUDY: No previous studies for comparison. CT DOSE: 248.42 mGycm TECHNIQUE: Standard CT of the Abdomen and Pelvis was performed with IV contrast. A dose lowering aaron hnique was utilized adhering to the principles of ALARA. Contrast Volume: Optiray 320, 84 ml. The patient received oral contrast. FINDINGS: Lung base: The lung bases are clear. Abdominal cavity: There is no evidence for abdominal mass, adenopathy or ascites. Liver: There is homogeneous attenuation of the liver parenchyma. There is no evidence for enhancing m ass lesion. Spleen: There is homogeneous attenuation of the splenic parenchyma. There is no enhancing mass lesion . Pancreas: There is homogeneous attenuation of the pancreatic parenchyma. There is no evidence for mas s lesion or peripancreatic fluid collection. Gall Bladder: The gallbladder is well distended with increased attenuation debris seen along the depe ndent portion of the gallbladder which may represent sludge versus small stones. Gallbladder ultrasou nd is recommended for further evaluation. Adrenal glands: The adrenal glands are normal in size and attenuation. There is no evidence for enhan cing mass lesion. Kidneys: There is homogeneous attenuation of the renal parenchyma bilaterally. There is no evidence f or renal calculus or hydronephrosis. There is no evidence for enhancing mass. Bowel: There is a dilated, fluid-filled appendix with appendicolith present. The appendix measures ap proximately 13 mm in diameter. Additionally, there is mild to moderate fluid seen within the right lo wer quadrant and pelvis. The findings are suspicious for leakage and perforation. There is no evidenc e for free air. No appendiceal abscess or phlegmon formation is identified. Oral contrast is seen within the stomach, small bowel and colon to the level of the hepatic flexure. The bowel loops are normally placed within the abdomen and pelvis without evidence for dilatation or obstruction. Bladder: The bladder is distended with no evidence for focal mass, calculus or diverticulum. : There is no evidence for pelvic mass or adenopathy. There is an approximately 4.1 cm right ovaria n cyst. Vasculature: There is no evidence for aneurysmal dilatation of the abdominal aorta. Osseous structures: There is no acute osseous pathology. IMPRESSION: 1. CT findings characteristic of acute appendicitis as described above. There is free fluid seen with in the right lower quadrant and pelvis suggesting leakage from the appendix. However, there is no eusebio dence for appendiceal abscess or free air. 2. Sludge versus cholelithiasis. Gallbladder ultrasound recommended. 3. 4.1 cm right ovarian cyst. ACT 112: Positive. There are findings on this exam that require communication between the performing entity and the patient following Patient Test Result Information Act ([place] Act 112) guidelines. Electronically signed by: Agapito Jackman M.D. 01/25/2021 7:40 AM
[2021-01-25 08:41] LABS: Hematocrit (blood only) 31.4 % (37-47); Hemoglobin 10.6 g/dL (12.0-16.0); Mean Corpuscular Hgb Conc 33.8 g/dL (32-36); Mean Corpuscular Volume 94.9 fL (80-100); Platelet Count 239 K/uL (130-400); RDW Coefficient of Variation 13.2 % (11.5-14.5); RDW Standard Deviation 46.2 fL (36.4-46.3); Red Blood Count 3.31 M/uL (4.2-5.4); White Blood Count 21.59 K/uL (4.8-10.8)
[2021-01-25 09:47] LABS: Basophils # (auto) 0.01 K/uL (0-0.2); Immature Granulocytes # (auto) 0.05 K/uL (0.00-0.02); Immature Granulocytes % (auto) 0.2 %; Lymphocytes # (auto) 0.46 K/uL (1.2-3.4); Lymphocytes % (auto) 2.1 %; Monocytes # (auto) 0.43 K/uL (0.11-0.59); Neutrophils # (auto) 20.64 K/uL (1.4-6.5); Neutrophils % (auto) 95.7 %
--- NOTE | 2021-01-25 10:46 | Surgery Progress Note ---
Date of Service January 25, 2021 Assessment & Plan (1) Acute appendicitis: Plan: POD #0, s/p laparoscopic appendectomy -avss - moderate postop pain at incisions, controlled - no n/v - leukocytosis of 21K (20K preop) Plan: continue pain management advance diet as tolerated continue IV Zosyn ambulate incentive scds repeat am cbc likely home tomorrow if wbc improves [facility] surgery covering this weekend Discussed with dr. davidson who agrees with above Admission and Anticipated Discharge Date Admission Date: January 25, 2021 Subjective feeling better, pain is not as severe as prior to surgery tolerating clear liquids ambulating to bathroom, urinating without difficulty no chest pain or shortness of breath Physical Exam Constitutional: WD/WN, vitals as above no acute distress and not ill appearing Respiratory: normal respiratory effort; no respiratory distress, no labored breathing and no retractions Gastrointestinal (Abdomen): Inspection/Auscultation: abdomen normal to inspection, + abdominal surgical incision (covered with dry dressings) and + hypoactive bowel sounds; abdomen not distended and + abnormal bowel sounds Percussion/Palpation: + abdomen tender (at incision sites) and abdomen soft; no guarding and abdomen not rigid Skin: no rashes, warm and dry Psychiatric: Orientation: alert and oriented x 3 Results & Data ([facility]) Vital Signs (Past 12 Hours) Vital Signs Temp Pulse Pulse Pulse Pulse Resp BP 01/25/21 06:32 37 C 84 18 01/25/21 05:22 36.5 C 80 16 01/25/21 04:25 36.5 C 86 17 01/25/21 03:55 36.4 C L 84 16 01/25/21 03:25 36.6 C 89 16 01/25/21 03:15 87 18 01/25/21 03:05 36.9 C 84 14 01/25/21 02:55 88 18 01/25/21 02:45 86 17 01/25/21 02:37 36.2 C L 111 H 16 01/25/21 00:43 102 H 18 98/56 L 01/24/21 23:51 96 H 20 01/24/21 23:16 110 H 20 BP Pulse Ox 01/25/21 06:32 110/72 97 01/25/21 05:22 103/68 98 01/25/21 04:25 110/70 95 01/25/21 03:55 115/73 95 01/25/21 03:25 109/68 94 01/25/21 03:15 118/75 97 01/25/21 03:05 118/76 96 01/25/21 02:55 122/83 100 01/25/21 02:45 124/89 100 01/25/21 02:37 131/70 100 01/25/21 00:43 99 01/24/21 23:51 102/59 L 97 01/24/21 23:16 107/56 L 100 Laboratory Results 01/25/21 01/24/21 01/24/21 Range/Units 08:03 22:41 22:41 WBC 21.59 H (4.8-10.8) K/uL RBC 3.31 L (4.2-5.4) M/uL Hgb 10.6 L (12.0-16.0) g/dL Hct 31.4 L (37-47) % MCV 94.9 (80-100) fL MCH 32.0 (25-34) pg MCHC 33.8 (32-36) g/dL RDW Std Deviation 46.2 (36.4-46.3) fL RDW Coeff of Demarcus 13.2 (11.5-14.5) % Plt Count 239 (130-400) K/uL MPV 13.0 H (7.4-10.4) fL Immature Gran % (Auto) 0.2 % Neut % (Auto) 95.7 % Lymph % (Auto) 2.1 % [place] % (Auto) 2.0 % Eos % (Auto) 0.0 % Baso % (Auto) 0.0 % Neut # (Auto) 20.64 H (1.4-6.5) K/uL Lymph # (Auto) 0.46 L (1.2-3.4) K/uL [place] # (Auto) 0.43 (0.11-0.59) K/uL Eos # (Auto) 0.00 (0-0.5) K/uL Baso # (Auto) 0.01 (0-0.2) K/uL Immature Gran # (Auto) 0.05 H (0.00-0.02) K/uL Sodium (136-145) mmol/L Potassium (3.5-5.1) mmol/L Chloride (98-107) mmol/L Carbon Dioxide (21-32) mmol/L Anion Gap (3-11) BUN (7-18) mg/dl Creatinine (0.6-1.2) mg/dl Est Cr Clr Drug Dosing ml/min Est GFR ( Amer) ml/min Est GFR (Non-Af Amer) ml/min BUN/Creatinine Ratio (10-20) Glucose (70-99) mg/dl Calcium (8.5-10.1) mg/dl Total Bilirubin (0.2-1) mg/dl AST (15-37) U/L ALT (12-78) U/L Alkaline Phosphatase (45-117) U/L Total Protein (6.4-8.2) gm/dl Albumin (3.4-5.0) gm/dl Globulin (2.5-4.0) gm/dl Albumin/Globulin Ratio (0.9-2) Lipase (73-393) U/L Urine Color Yellow Urine Appearance Clear (Clear) Urine pH 6.5 (4.5-7.5) Ur Specific [place] 1.005 (1.000-1.030) Urine Protein Negative (Negative) Urine Glucose (UA) Negative (Negative) Urine Ketones Negative (Negative) Urine Blood Negative (Negative) Urine Nitrite Negative (Negative) Urine Bilirubin Negative (Negative) Urine Urobilinogen Negative (Negative) Ur Leukocyte Esterase Negative (Negative) Urine Test Negative (Negative) COVID-19 Eval Order SARS-CoV-2 (PCR) (Negative) 01/24/21 01/24/21 01/24/21 Range/Units 22:17 22:17 19:19 WBC 20.33 H (4.8-10.8) K/uL RBC 3.66 L (4.2-5.4) M/uL Hgb 11.7 L (12.0-16.0) g/dL Hct 35.2 L (37-47) % MCV 96.2 (80-100) fL MCH 32.0 (25-34) pg MCHC 33.2 (32-36) g/dL RDW Std Deviation 45.8 (36.4-46.3) fL RDW Coeff of Demarcus 12.9 (11.5-14.5) % Plt Count 234 (130-400) K/uL MPV 13.0 H (7.4-10.4) fL Immature Gran % (Auto) 0.4 % Neut % (Auto) 92.4 % Lymph % (Auto) 4.1 % [place] % (Auto) 3.0 % Eos % (Auto) 0.0 % Baso % (Auto) 0.1 % Neut # (Auto) 18.77 H (1.4-6.5) K/uL Lymph # (Auto) 0.84 L (1.2-3.4) K/uL [place] # (Auto) 0.62 H (0.11-0.59) K/uL Eos # (Auto) 0.00 (0-0.5) K/uL Baso # (Auto) 0.02 (0-0.2) K/uL Immature Gran # (Auto) 0.08 H (0.00-0.02) K/uL Sodium (136-145) mmol/L Potassium (3.5-5.1) mmol/L Chloride (98-107) mmol/L Carbon Dioxide (21-32) mmol/L Anion Gap (3-11) BUN (7-18) mg/dl Creatinine (0.6-1.2) mg/dl Est Cr Clr Drug Dosing ml/min Est GFR ( Amer) ml/min Est GFR (Non-Af Amer) ml/min BUN/Creatinine Ratio (10-20) Glucose (70-99) mg/dl Calcium (8.5-10.1) mg/dl Total Bilirubin (0.2-1) mg/dl AST (15-37) U/L ALT (12-78) U/L Alkaline Phosphatase (45-117) U/L Total Protein (6.4-8.2) gm/dl Albumin (3.4-5.0) gm/dl Globulin (2.5-4.0) gm/dl Albumin/Globulin Ratio (0.9-2) Lipase (73-393) U/L Urine Color Urine Appearance (Clear) Urine pH (4.5-7.5) Ur Specific [place] (1.000-1.030) Urine Protein (Negative) Urine Glucose (UA) (Negative) Urine Ketones (Negative) Urine Blood (Negative) Urine Nitrite (Negative) Urine Bilirubin (Negative) Urine Urobilinogen (Negative) Ur Leukocyte Esterase (Negative) Urine Test (Negative) COVID-19 Eval Order Covid19 at [facility] SARS-CoV-2 (PCR) NEGATIVE (Negative) 01/24/21 Range/Units 19:18 WBC (4.8-10.8) K/uL RBC (4.2-5.4) M/uL Hgb (12.0-16.0) g/dL Hct (37-47) % MCV (80-100) fL MCH (25-34) pg MCHC (32-36) g/dL RDW Std Deviation (36.4-46.3) fL RDW Coeff of Demarcus (11.5-14.5) % Plt Count (130-400) K/uL MPV (7.4-10.4) fL Immature Gran % (Auto) % Neut % (Auto) % Lymph % (Auto) % [place] % (Auto) % Eos % (Auto) % Baso % (Auto) % Neut # (Auto) (1.4-6.5) K/uL Lymph # (Auto) (1.2-3.4) K/uL [place] # (Auto) (0.11-0.59) K/uL Eos # (Auto) (0-0.5) K/uL Baso # (Auto) (0-0.2) K/uL Immature Gran # (Auto) (0.00-0.02) K/uL Sodium 139 (136-145) mmol/L Potassium 3.6 (3.5-5.1) mmol/L Chloride 107 (98-107) mmol/L Carbon Dioxide 23 (21-32) mmol/L Anion Gap 9.0 (3-11) BUN 7 (7-18) mg/dl Creatinine 0.81 (0.6-1.2) mg/dl Est Cr Clr Drug Dosing 77.7 ml/min Est GFR ( Amer) 120.3 ml/min Est GFR (Non-Af Amer) 103.8 ml/min BUN/Creatinine Ratio 8.0 L (10-20) Glucose 96 (70-99) mg/dl Calcium 9.1 (8.5-10.1) mg/dl Total Bilirubin 0.5 (0.2-1) mg/dl AST 6 L (15-37) U/L ALT 12 (12-78) U/L Alkaline Phosphatase 44 L (45-117) U/L Total Protein 6.9 (6.4-8.2) gm/dl Albumin 3.0 L (3.4-5.0) gm/dl Globulin 3.9 (2.5-4.0) gm/dl Albumin/Globulin Ratio 0.8 L (0.9-2) Lipase 159 (73-393) U/L Urine Color Urine Appearance (Clear) Urine pH (4.5-7.5) Ur Specific [place] (1.000-1.030) Urine Protein (Negative) Urine Glucose (UA) (Negative) Urine Ketones (Negative) Urine Blood (Negative) Urine Nitrite (Negative) Urine Bilirubin (Negative) Urine Urobilinogen (Negative) Ur Leukocyte Esterase (Negative) Urine Test (Negative) COVID-19 Eval Order SARS-CoV-2 (PCR) (Negative) (1) Acute appendicitis Acute appendicitis type: unspecified acute appendicitis type Qualified Code(s): K35.80 - Unspecified acute appendicitis
[2021-01-25] MEDS: oxyCODONE/ACETAMINOPHEN 5mg/325mg TAB PO PRN ×2 (11:08→19:56)
[2021-01-26] MEDS: PIPERACILLIN/TAZOBACTAM 3.375 GM in DEXTROSE 5% 100 ML IV SCH ×3 (04:23→20:32)
[2021-01-26] MEDS: oxyCODONE/ACETAMINOPHEN 5mg/325mg TAB PO PRN ×2 (04:27→18:49)
--- NOTE | 2021-01-26 05:13 | Surgery Progress Note ---
Date of Service January 26, 2021 Assessment & Plan (1) Acute appendicitis: Plan: Status post appendectomy on 01/25/2021 (POD#1) Continue antibiotics (Zosyn) while in hospital Continue analgesics Continue antiemetics Continue diet as tolerated Activity as tolerated Encourage use of incentive spirometry Follow up on a.m. labs when available patient was noted to have leukocytosis preoperatively Likely discharge home later today Admission and Anticipated Discharge Date Admission Date: January 25, 2021 Supervising Physician Co-Signing Physician Notes I personally saw and evaluated the patient with Loyd Hunter PA-C and agree with the assessment and plan. 20 yo female POD#1 lap appy -She has not been moving around much and still with some pain -Keep on Zosyn today, repeat CBC in AM -She is hesitant to go home because she will be by herself -I think another day of IV ABX and pain control is in her best interest Subjective Patient is resting comfortably in bed. Since her surgery she denies having a bowel movement or passing any flatus. She has thus far tolerated solid food without any nausea or vomiting. She does note some pain near her surgical incisions. She denies any shortness of breath. She denies any fevers, shakes, chills. Physical Exam Gastrointestinal (Abdomen): Abdomen is nondistended with hypoactive bowel sounds. Incisions are clean dry and intact. Patient has appropriate tenderness near surgical incisions. Results & Data ([facility]) Vital Signs (Past 12 Hours) Vital Signs Temp Pulse Resp BP Pulse Ox 01/25/21 23:06 37 C 94 H 14 97/55 L 97 01/25/21 19:47 36.8 C 91 H 16 103/66 99 PG Care Time/CCT Total # of Minutes Spent Total Time Spent with Patient: Total time spent is greater than 50% in coordination of care (as documented) at patient's floor/unit and/or counseling patient: Coding Level of Care Code None Diagnoses Acute appendicitis K35.80 Acute appendicitis type: unspecified acute appendicitis type (1) Acute appendicitis Acute appendicitis type: unspecified acute appendicitis type Qualified Code(s): K35.80 - Unspecified acute appendicitis
[2021-01-26 06:23] LABS: Basophils # (auto) 0.01 K/uL (0-0.2); Basophils % (auto) 0.1 %; Eosinophils # (auto) 0.09 K/uL (0-0.5); Eosinophils % (auto) 0.6 %; Hematocrit (blood only) 30.2 % (37-47); Hemoglobin 10.2 g/dL (12.0-16.0); Immature Granulocytes # (auto) 0.04 K/uL (0.00-0.02); Immature Granulocytes % (auto) 0.2 %; Lymphocytes % (auto) 6.9 %; Mean Corpuscular Hemoglobin 31.7 pg (25-34); Mean Corpuscular Hgb Conc 33.8 g/dL (32-36); Mean Corpuscular Volume 93.8 fL (80-100); Mean Platelet Volume 12.5 fL (7.4-10.4); Monocytes # (auto) 0.61 K/uL (0.11-0.59); Monocytes % (auto) 3.8 %; Neutrophils # (auto) 14.19 K/uL (1.4-6.5); Neutrophils % (auto) 88.4 %; Platelet Count 237 K/uL (130-400); RDW Coefficient of Variation 13.2 % (11.5-14.5); RDW Standard Deviation 45.4 fL (36.4-46.3); Red Blood Count 3.22 M/uL (4.2-5.4); White Blood Count 16.04 K/uL (4.8-10.8)
[2021-01-26] MEDS: ACETAMINOPHEN 500 MG TAB PO PRN ×2 (06:41→20:33)
[2021-01-27] MEDS: ACETAMINOPHEN 500 MG TAB PO PRN (02:35)
[2021-01-27] MEDS: PIPERACILLIN/TAZOBACTAM 3.375 GM in DEXTROSE 5% 100 ML IV SCH ×2 (03:57→11:40)
--- NOTE | 2021-01-27 05:41 | Surgery Progress Note ---
Date of Service January 27, 2021 Assessment & Plan (1) Acute appendicitis: Plan: Status post appendectomy on 01/25/2021 (POD#2) Continue Zosyn Continue analgesics Continue antiemetics Continue diet as tolerated Activity as tolerated Encourage use of incentive spirometry Leukocytosis was improved on postoperative day #1. CBC this a.m. is pending We will consider discharge home later today Admission and Anticipated Discharge Date Admission Date: January 25, 2021 Supervising Physician Co-Signing Physician Notes I personally saw and evaluated the patient with Loyd Hunter PA-C and agree with the assessment and plan. 20 yo female POD#2 lap appy -She is feeling better -Will d/c today with 10 day course of Augmentin -F/u with Dr. Delgadillo as outpatient Subjective Patient denies any nausea vomiting and is tolerating solid food. She denies any shortness of breath. Does report pain at surgical incision. Physical Exam Gastrointestinal (Abdomen): Abdomen is soft and nondistended. Patient has appropriate pain at surgical incision. Results & Data ([facility]) Vital Signs (Past 12 Hours) Vital Signs Temp Pulse Resp BP Pulse Ox 01/26/21 22:28 37.3 C 101 H 14 98/58 L 95 PG Care Time/CCT Total # of Minutes Spent Total Time Spent with Patient: Total time spent is greater than 50% in coordination of care (as documented) at patient's floor/unit and/or counseling patient: Coding Level of Care Code None Diagnoses Acute appendicitis K35.80 Acute appendicitis type: unspecified acute appendicitis type (1) Acute appendicitis Acute appendicitis type: unspecified acute appendicitis type Qualified Code(s): K35.80 - Unspecified acute appendicitis
[2021-01-27 06:21] LABS: Basophils # (auto) 0.03 K/uL (0-0.2); Basophils % (auto) 0.2 %; Eosinophils # (auto) 0.14 K/uL (0-0.5); Eosinophils % (auto) 0.9 %; Hematocrit (blood only) 32.4 % (37-47); Hemoglobin 10.7 g/dL (12.0-16.0); Immature Granulocytes # (auto) 0.05 K/uL (0.00-0.02); Immature Granulocytes % (auto) 0.3 %; Lymphocytes # (auto) 1.32 K/uL (1.2-3.4); Lymphocytes % (auto) 8.9 %; Mean Corpuscular Hemoglobin 31.5 pg (25-34); Mean Corpuscular Volume 95.3 fL (80-100); Mean Platelet Volume 11.8 fL (7.4-10.4); Monocytes # (auto) 0.93 K/uL (0.11-0.59); Monocytes % (auto) 6.3 %; Neutrophils # (auto) 12.41 K/uL (1.4-6.5); Neutrophils % (auto) 83.4 %; Platelet Count 275 K/uL (130-400); RDW Coefficient of Variation 13.3 % (11.5-14.5); RDW Standard Deviation 46.5 fL (36.4-46.3); White Blood Count 14.88 K/uL (4.8-10.8)
[2021-01-27] MEDS: oxyCODONE/ACETAMINOPHEN 5mg/325mg TAB PO PRN ×2 (09:47→16:29)
--- NOTE | 2021-01-28 23:09 | Discharge Summary (DS) ---
DATE OF ADMISSION: 01/25/2021 DATE OF DISCHARGE: 01/27/2021 ADMISSION DIAGNOSIS: Acute appendicitis. DISCHARGE DIAGNOSIS: Acute appendicitis. OPERATION: Laparoscopic appendectomy. SURGEON: Blane Delgadillo MD. DETAILS OF DISCHARGE SUMMARY: This is a 20-year-old female who presented to ED with acute abdominal pain. The patient had a CT scan diagnosis of acute appendicitis. I took the patient to the OR, we di d laparoscopic appendectomy. The patient tolerated the procedure well. The patient was doing fine a fter transferred to the floor and repeat WBC was 16,000. The patient continued to stay in the hospit al on postoperative day #2 and patient was doing fine. The patient was discharged home on 01/27/2021 . PHYSICAL EXAMINATION: VITAL SIGNS: Temperature is 36.8, respiratory rate 18, heart rate 95, blood pressure 96/64, O2 satur ation 96% on room air. GENERAL: The patient is alert, awake, oriented x3. HEENT: Within normal limitation. NEUROLOGIC: Intact. CHEST: Bilateral lung sounds clear. HEART: Normal S1 and S2. No murmur. ABDOMEN: Soft, mildly tender on the incision site. Not distended. All incisions intact. No redne ss, no drainage. Bowel sounds positive. The patient tolerated a regular diet. The patient wanted to go home on 01/27/2021. We gave the bernabe ent postop care instructions. The patient understands. The patient was discharged home on . Job ID: [id number]
== END 2021-01-27 16:30 | disposition home or self-care (01) ==
LOC: ED 17:52 → 3N 01-25 00:43 → OR 01-25 00:43